=== PATIENT | female | born 1990 | race American Indian/Alaskan Native ===

== ENCOUNTER 2017-08-04 23:22 | Emergency (ER) | payer MEDICAID, OTHER, SELFPAY ==
[2017-08-05 00:08] VITALS: BP 118/66
[2017-08-05] MEDS ORDERED: Ketorolac 30 MG/ML SDV IM ONE (00:12)
--- NOTE | 2017-08-05 00:12 | EDM.PDOC ---
ED HPI GENERAL MEDICAL PROBLEM - General Chief Complaint: Back Pain or Injury Stated Complaint: BACK PAIN [id number] Time Seen by Provider: 08/05/17 00:07 Source of Information: Reports: Patient History Limitations: Reports: No Limitations - History of Present Illness INITIAL COMMENTS - FREE TEXT/NARRATIVE: was pulling laundry out of machine at work felt sudden sharp pain left upper back hurts to move and turn head. 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 ED EXAM, UPPER BACK/NECK PAIN - Physical Exam Exam: See Below Exam Limited By: No Limitations General Appearance: Alert, WD/WN, Mild Distress, Other (discomfort) Eye Exam: Bilateral Eye: PERRL (pupils ess ER @ 4mm) Ears Exam: Hearing Grossly Normal Throat/Mouth Exam: Normal Voice, No Airway Compromise Head Exam: Atraumatic Neck Exam: Non-Tender, Full Range of Motion Nexus Criteria: No: Posterior, Midline Cervical Tenderness, Evidence of Intoxication, Altered Level of Consciousness, Focal Neurological Deficit, Painful Distraction Injuries Cardiovascular/Respiratory: Regular Rate, Rhythm GI/Abdominal: Soft, Non-Tender Back Exam: Muscle Spasm, Paraspinal Tenderness, Other (left scapular) Neurologic: No Motor/Sensory Deficits, Alert, Normal Mood/Affect, Oriented x 3 Psychiatric: Tearful Skin Exam: Normal Color, Warm/Dry Lymphatic: No Adenopathy Course - Vital Signs Last Recorded V/S: Last Vital Signs Temp 36.9 C 08/05/17 00:04 Pulse 143 H 08/05/17 00:04 Resp 20 08/05/17 00:04 BP 118/66 08/05/17 00:04 Pulse Ox 100 08/05/17 00:04 - Orders/Labs/Meds Meds: Medications Discontinued Medications Generic Name Dose Route Start Last Admin Trade Name Winston PRN Reason Stop Dose Admin Cyclobenzaprine HCl 10 mg 08/05/17 00:36 08/05/17 00:43 Flexeril PO 08/05/17 00:37 10 mg ONETIME ONE Administration Ketorolac Tromethamine 30 mg 08/05/17 00:12 08/05/17 00:17 Toradol IM 08/05/17 00:13 30 mg ONETIME ONE Administration Departure - Departure Time of Disposition: 00:45 Disposition: Home, Self-Care 01 Condition: Good Clinical Impression: Interscapular pain - Discharge Information Instructions: Muscle Strain, [id number] Forms: ED Department Discharge Additional Instructions: 1) avoid lifting bending straining next 48 hours 2) try ice or heat to sore areas 3) follow up at clinic or recheck as needed rx given; flexeril 10mg bid prn spasms x 6
[2017-08-05] MEDS ORDERED: Cyclobenzaprine 10 MG Tab PO ONE (00:36)
== END 2017-08-05 00:46 | disposition home or self-care (01) ==
LOC: DL.ED 23:22
DX: M54.9 Dorsalgia, unspecified (principal)
CPT/HCPCS: 96372; 99283; A9270; J1885

== ENCOUNTER 2017-09-23 09:06 | Emergency (ER) | payer SELFPAY ==
--- NOTE | 2017-09-23 09:24 | EDM.PDOC ---
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 9wks gestation with c/o foul, fishy smelling vaginal discharge for about 7 days, with some pink tinge to the discharge over the last couple of days. Denies abd/pelvic pain, fever, chills, N/V, vaginal bleeding, or leak of fluids. Pt states Sx's are the same as when she had "BV" in the past. Onset: Gradual Duration: Day(s): (7) Location: Reports: Other (vaginal) Severity: Moderate Improves with: Reports: None Worsens with: Reports: None Associated Symptoms: Reports: No Other Symptoms Middle Abdomen Pain Score (Numeric/FACES): 3 - Related Data Allergies Allergy/AdvReac Type Severity Reaction Status Date / Time No Known Allergies Allergy Verified 09/23/17 09:31 Home Meds: Home Meds Acetaminophen [Tylenol] 650 mg PO Q6H PRN #30 tablet 03/03/16 [Rx] Ibuprofen [IJD: Ibuprofen] 600 mg PO Q6H PRN #40 tablet 03/03/16 [Rx] PNV95/Ferrous Fumarate/FA [Prenavite Tablet] 1 each PO 09/23/17 [History] Past Medical History - Past Health History Medical/Surgical History: Denies Medical/Surgical History Genitourinary History: Reports: Pyelonephritis, STD, UTI, Recurrent Other Genitourinary History: 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 ED EXAM - Physical Exam Exam: See Below Exam Limited By: No Limitations General Appearance: Alert, WD/WN, No Apparent Distress Throat/Mouth: Normal Inspection, Normal Voice Head: Atraumatic, Normocephalic Respiratory/Chest: No Respiratory Distress, Lungs Clear, Normal Breath Sounds, No Accessory Muscle Use, Chest Non-Tender Cardiovascular: Regular Rate, Rhythm, No Edema, No Murmur GI/Abdominal Exam: Normal Bowel Sounds, Soft, Non-Tender, No Organomegaly, No Distention, No Abnormal Bruit, No Mass, Pelvis Stable Rectal Exam: Deferred (Female) Exam: Other (Deferred) Movement: Not Appreciated Back Exam: Normal Inspection, Full Range of Motion. No: CVA Tenderness (L), CVA Tenderness (R) Extremities: Normal Inspection, Normal Range of Motion, Non-Tender, No Pedal Edema, Normal Capillary Refill Neurological: Alert, Oriented, Normal Cognition, Normal Gait, No Motor/Sensory Deficits Psychiatric: Normal Affect, Normal Mood Skin Exam: Warm, Dry, Intact, Normal Color, No Rash Course - Vital Signs Last Recorded V/S: Last Vital Signs Temp 36.7 C 09/23/17 09:23 Pulse 86 09/23/17 09:23 Resp 16 09/23/17 09:23 BP 117/74 09/23/17 09:23 Pulse Ox 98 09/23/17 09:23 - Orders/Labs/Meds Orders: Active Orders 24 hr Category Date Time Status CHLAMYDIA AND GONORRHEA BY TMA Routine Lab 09/23/17 09:45 Received DRUG SCREEN URINE BIORAD [URCHEM] Stat Lab 09/23/17 09:45 Ordered UA W/MICROSCOPIC [URIN] Stat Lab 09/23/17 09:45 Ordered Labs: Laboratory Tests 09/23/17 09/23/17 09/23/17 Range/Units 09:30 09:30 09:45 WBC 8.8 (5.0-10.0) 10^3/uL RBC 4.55 (4.2-5.4) 10^6/uL Hgb 10.7 L (12.0-16.0) g/dL Hct 33.0 L (37.0-47.0) % MCV 72.5 L D (80-100) fL MCH 23.5 L (27.0-34.0) pg MCHC 32.4 L (33.0-35.0) g/dL Plt Count 386 D (150-450) 10^3/uL Neut % (Auto) 61.6 (42.2-75.2) % Lymph % (Auto) 25.5 (20.5-50.1) % Converse % (Auto) 9.9 H (2-8) % Eos % (Auto) 2.4 (1.0-3.0) % Baso % (Auto) 0.6 (0.0-1.0) % HCG, Quant > 1358 H (0-25) mIU/ml Beta HCG, Quant 86120 mIU/ml Urine Color Yellow (YELLOW) Urine Appearance Cloudy (CLEAR) Urine pH 6.5 (5.0-9.0) Ur Specific Schaller 1.025 (1.005-1.030) Urine Protein Negative (NEGATIVE) Urine Glucose (UA) Negative (NEGATIVE) Urine Ketones Negative (NEGATIVE) Urine Occult Blood Trace-lysed H (NEGATIVE) Urine Nitrite Negative (NEGATIVE) Urine Bilirubin Negative (NEGATIVE) Urine Urobilinogen 0.2 (0.2-1.0) mg/dL Ur Leukocyte Esterase Negative (NEGATIVE) Urine RBC 5-10 H /HPF Urine WBC 0-5 (0-5/HPF) /HPF Ur Epithelial Cells Moderate H /HPF Amorphous Sediment Few (0/HPF) /HPF Urine Bacteria Rare (0-FEW/HPF) /HPF Urine Mucus Rare /LPF Urine Opiates Screen (NEGATIVE) Ur Oxycodone Screen (NEGATIVE) Urine Methadone Screen (NEGATIVE) Ur Barbiturates Screen (NEGATIVE) U Tricyclic Antidepress (NEGATIVE) Ur Phencyclidine Scrn (NEGATIVE) Ur Amphetamine Screen (NEGATIVE) U Methamphetamines Scrn (NEGATIVE) Urine MDMA Screen (NEGATIVE) U Benzodiazepines Scrn (NEGATIVE) Urine Cocaine Screen (NEGATIVE) U Marijuana (THC) Screen (NEGATIVE) 09/23/17 Range/Units 09:45 WBC (5.0-10.0) 10^3/uL RBC (4.2-5.4) 10^6/uL Hgb (12.0-16.0) g/dL Hct (37.0-47.0) % MCV (80-100) fL MCH (27.0-34.0) pg MCHC (33.0-35.0) g/dL Plt Count (150-450) 10^3/uL Neut % (Auto) (42.2-75.2) % Lymph % (Auto) (20.5-50.1) % Converse % (Auto) (2-8) % Eos % (Auto) (1.0-3.0) % Baso % (Auto) (0.0-1.0) % HCG, Quant (0-25) mIU/ml Beta HCG, Quant mIU/ml Urine Color (YELLOW) Urine Appearance (CLEAR) Urine pH (5.0-9.0) Ur Specific Schaller (1.005-1.030) Urine Protein (NEGATIVE) Urine Glucose (UA) (NEGATIVE) Urine Ketones (NEGATIVE) Urine Occult Blood (NEGATIVE) Urine Nitrite (NEGATIVE) Urine Bilirubin (NEGATIVE) Urine Urobilinogen (0.2-1.0) mg/dL Ur Leukocyte Esterase (NEGATIVE) Urine RBC /HPF Urine WBC (0-5/HPF) /HPF Ur Epithelial Cells /HPF Amorphous Sediment (0/HPF) /HPF Urine Bacteria (0-FEW/HPF) /HPF Urine Mucus /LPF Urine Opiates Screen Negative (NEGATIVE) Ur Oxycodone Screen Negative (NEGATIVE) Urine Methadone Screen Negative (NEGATIVE) Ur Barbiturates Screen Negative (NEGATIVE) U Tricyclic Antidepress Negative (NEGATIVE) Ur Phencyclidine Scrn Negative (NEGATIVE) Ur Amphetamine Screen Negative (NEGATIVE) U Methamphetamines Scrn Positive H (NEGATIVE) Urine MDMA Screen Negative (NEGATIVE) U Benzodiazepines Scrn Negative (NEGATIVE) Urine Cocaine Screen Negative (NEGATIVE) U Marijuana (THC) Screen Negative (NEGATIVE) - Re-Assessments/Exams Free Text/Narrative Re-Assessment/Exam: 09/23/17 Urine drug screen positive for methamphetamine. Pt denies drug use. Findings reported to RN for filing of form 960. Departure - Departure Time of Disposition: 10:10 Disposition: Home, Self-Care 01 Condition: Good Clinical Impression: Bacterial vaginosis, and infectious disease in first trimester, Positive urine drug screen - Discharge Information Instructions: Bacterial Vaginosis, [id number] Forms: ED Department Discharge Additional Instructions: Rx: Flagyl 500mg Follow up in clinic in 7 to 10 days for recheck. - My Orders Last 24 Hours: My Active Orders 09/23/17 09:45 CHLAMYDIA AND GONORRHEA BY TMA Routine DRUG SCREEN URINE BIORAD [URCHEM] Stat UA W/MICROSCOPIC [URIN] Stat - Assessment/Plan Last 24 Hours: My Active Orders 09/23/17 09:45 CHLAMYDIA AND GONORRHEA BY TMA Routine DRUG SCREEN URINE BIORAD [URCHEM] Stat UA W/MICROSCOPIC [URIN] Stat
[2017-09-23 09:25] VITALS: BP 117/74
== END 2017-09-23 10:15 | disposition home or self-care (01) ==
LOC: DL.ED 09:06
DX: O23.591 Infection of other part of genital tract in pregnancy, first trimester (principal); N76.0 Acute vaginitis; B96.89 Other specified bacterial agents as the cause of diseases classified elsewhere; Z3A.09 9 weeks gestation of pregnancy
CPT/HCPCS: 36415; 80305-QW; 81001; 84702; 85025; 87491; 87591; 99283; 99284

== ENCOUNTER 2017-12-09 00:49 | Emergency (ER) | payer SELFPAY ==
[2017-12-09 00:56] VITALS: BP 114/57
--- NOTE | 2017-12-09 01:13 | EDM.PDOC ---
ED HPI GENERAL MEDICAL PROBLEM - General Chief Complaint: ENT Problem Stated Complaint: EAR ACHE [id number] Time Seen by Provider: 12/09/17 01:10 Source of Information: Reports: Patient History Limitations: Reports: No Limitations - History of Present Illness INITIAL COMMENTS - FREE TEXT/NARRATIVE: c/o 2 days h/o right ear pain went to [facility]x with sinus problem but still not better. everything started with sore throat then ear pain then lump appear behind the ear. 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) Right Ear Pain Score (Numeric/FACES): 9 - Related Data Allergies Allergy/AdvReac Type Severity Reaction Status Date / Time No Known Allergies Allergy Verified 09/23/17 09:31 Home Meds: Home Meds Acetaminophen [Tylenol] 650 mg PO Q6H PRN #30 tablet 03/03/16 [Rx] Ibuprofen [IJD: Ibuprofen] 600 mg PO Q6H PRN #40 tablet 03/03/16 [Rx] PNV95/Ferrous Fumarate/FA [Prenavite Tablet] 1 each PO DAILY 09/23/17 [History] Past Medical History - Past Health History Medical/Surgical History: Denies Medical/Surgical History Cardiovascular History: Reports: None Genitourinary History: Reports: Pyelonephritis, STD, UTI, Recurrent Other Genitourinary History: 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, previous hx of bacterial vaginosis Other Endocrine/Metabolic History: Gestational Diabetes with 1st Hematologic History: Reports: Anemia - Past Surgical History Female Surgical History: Reports: Section Social & Family History - Family History Family Medical History: Noncontributory - Tobacco Use Smoking Status *Q: Current Every Day Smoker Years of Tobacco use: 10 Packs/Tins Daily: 0.5 Second Hand Smoke Exposure: Yes - Caffeine Use Caffeine Use: Reports: Coffee, Soda - Recreational Drug Use Recreational Drug Use: No - Living Situation & Occupation Living situation: Reports: with Family ED ROS ENT - Review of Systems Review Of Systems: ROS reveals no pertinent complaints other than HPI. ED EXAM, ENT - Physical Exam Exam: See Below Exam Limited By: No Limitations General Appearance: Alert, WD/WN, Mild Distress, Other (upset) Ears: Normal External Exam, Normal Canal, Hearing Grossly Normal, Normal TMs, TM Dullness Mouth/Throat: Pharyngeal Erythema. No: Tonsillar Erythema, Tonsillar Exudates, Tonsillar Swelling Head: Atraumatic Neck: Non-Tender, Full Range of Motion, Lymphadenopathy (R), Other (right post auricular lymphadnopathy) Respiratory/Chest: No Respiratory Distress Cardiovascular: Regular Rate, Rhythm GI/Abdominal: Soft, Non-Tender Neurological: Alert, Oriented, Normal Cognition, Normal Gait, No Motor/Sensory Deficits Psychiatric: Other (upset) Skin: Warm, Dry, Normal Color Lymphatic: No Adenopathy Course - Vital Signs Last Recorded V/S: Last Vital Signs Temp 36.2 C 12/09/17 00:54 Pulse 93 12/09/17 00:54 Resp 20 12/09/17 00:54 BP 114/57 L 12/09/17 00:54 Pulse Ox 100 12/09/17 00:54 - Orders/Labs/Meds Orders: Active Orders 24 hr Category Date Time Status CULTURE STREP A CONFIRMATION [RM] Stat Lab 12/09/17 01:05 Results STREP SCRN A RAPID W CULT CONF [RM] Stat Lab 12/09/17 01:05 Results Amoxicillin [Amoxil] Med 12/09/17 01:32 Once 250 mg PO ONETIME ONE - Re-Assessments/Exams Free Text/Narrative Re-Assessment/Exam: 12/09/17 01:33 results discussed with pt. Departure - Departure Time of Disposition: 01:33 Disposition: Home, Self-Care 01 Condition: Good Clinical Impression: Tonsillopharyngitis, Cervical lymphadenopathy - Discharge Information Instructions: Pharyngitis, [id number] Forms: ED Department Discharge Additional Instructions: 1) avoid solid foods and scratchy foods 2) follow up at clinic rx given; amox 250mg tid x 30 - My Orders Last 24 Hours: My Active Orders 12/09/17 01:05 CULTURE STREP A CONFIRMATION [RM] Stat STREP SCRN A RAPID W CULT CONF [RM] Stat 12/09/17 01:32 Amoxicillin [Amoxil] 250 mg PO ONETIME ONE - Assessment/Plan Last 24 Hours: My Active Orders 12/09/17 01:05 CULTURE STREP A CONFIRMATION [RM] Stat STREP SCRN A RAPID W CULT CONF [RM] Stat 12/09/17 01:32 Amoxicillin [Amoxil] 250 mg PO ONETIME ONE
[2017-12-09] MEDS ORDERED: Amoxicillin 250 MG Cap PO ONE (01:32)
== END 2017-12-09 01:41 | disposition home or self-care (01) ==
LOC: DL.ED 00:49
DX: J03.90 Acute tonsillitis, unspecified (principal); R59.0 Localized enlarged lymph nodes; F17.210 Nicotine dependence, cigarettes, uncomplicated; Z79.899 Other long term (current) drug therapy
CPT/HCPCS: 87081; 87430; 99283; A9270

== ENCOUNTER 2018-07-12 09:45 | Emergency (ER) | payer MEDICAID ==
[2018-07-12 10:11] VITALS: BP 122/80
[2018-07-12] MEDS ORDERED: Sodium Chloride 0.9% 1,000 ML IV ONE (10:11)
[2018-07-12] MEDS ORDERED: Ondansetron 4 MG/2 ML SDV IV ONE (10:11)
--- NOTE | 2018-07-12 10:13 | EDM.PDOC ---
ED HPI GENERAL MEDICAL PROBLEM - General Chief Complaint: Gastrointestinal Problem Stated Complaint: FOOD POISON [id number] Time Seen by Provider: 07/12/18 10:00 Source of Information: Reports: Patient History Limitations: Reports: No Limitations - History of Present Illness INITIAL COMMENTS - FREE TEXT/NARRATIVE: This 28 yo female patient reports to the ED with diffuse abdominal pain, nausea/ vomiting and diarrhea. The patient reports her symptoms started this morning at 0600. The patient reports she did eat [employer] stir-hein and [employer] chicken tenders last night for dinner. The patient reports she has not taken anything for her current symptoms. The patient denies any drug or alcohol use. Onset: Today Onset Date: 07/12/18 Onset Time: 06:00 Duration: Constant Location: Reports: Abdomen Quality: Reports: Ache, Dull Severity: Moderate Improves with: Reports: None Worsens with: Reports: None Context: Reports: Other Associated Symptoms: Reports: Nausea/Vomiting, Other (diarrhea) Bilateral Upper Abdominal Pain Score (Numeric/FACES): 9 - Related Data Allergies Allergy/AdvReac Type Severity Reaction Status Date / Time No Known Allergies Allergy Verified 07/12/18 09:55 Home Meds: Home Meds Acetaminophen [Tylenol] 650 mg PO Q6H PRN #30 tablet 16 [Rx] Ibuprofen [IJD: Ibuprofen] 600 mg PO Q6H PRN #40 tablet 16 [Rx] Past Medical History - Past Health History Medical/Surgical History: Denies Medical/Surgical History Cardiovascular History: Reports: None Genitourinary History: Reports: Pyelonephritis, STD, UTI, Recurrent Other Genitourinary History: Chlamydia with previous 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 ED EXAM, GI/ABD - Physical Exam Exam: See Below Exam Limited By: No Limitations General Appearance: Alert, WD/WN, Moderate Distress Eyes: Bilateral: Normal Appearance, EOMI Ears: Normal External Exam, Normal Canal, Hearing Grossly Normal, Normal TMs Nose: Normal Inspection, Normal Mucosa, No Blood Throat/Mouth: Normal Inspection, Normal Lips, Normal Teeth, Normal Gums, Normal Oropharynx, Normal Voice, No Airway Compromise Head: Atraumatic, Normocephalic Neck: Normal Inspection, Supple, Non-Tender, Full Range of Motion Respiratory/Chest: No Respiratory Distress, Lungs Clear, Normal Breath Sounds, No Accessory Muscle Use, Chest Non-Tender Cardiovascular: Normal Peripheral Pulses, Regular Rate, Rhythm, No Edema, No Gallop, No JVD, No Murmur, No Rub GI/Abdominal Exam: Normal Bowel Sounds, Soft, No Organomegaly, No Distention, No Abnormal Bruit, No Mass, Pelvis Stable, Tender (diffuse upper abdominal tenderness to palpation) (Female) Exam: Deferred Rectal (Female) Exam: Deferred Back Exam: Normal Inspection, Full Range of Motion, NT Extremities: Normal Inspection, Normal Range of Motion, Non-Tender, Normal Capillary Refill, No Pedal Edema Neurological: Alert, Oriented, CN II-XII Intact, Normal Cognition, Normal Gait, Normal Reflexes, No Motor/Sensory Deficits Psychiatric: Normal Affect, Normal Mood Skin Exam: Warm, Dry, Intact, Normal Color, No Rash Lymphatic: No Adenopathy Course - Vital Signs Last Recorded V/S: Last Vital Signs Temp 36.6 C 07/12/18 09:56 Pulse 107 H 07/12/18 09:56 Resp 16 07/12/18 09:56 BP 122/80 07/12/18 09:56 Pulse Ox 97 07/12/18 09:56 - Orders/Labs/Meds Orders: Active Orders 24 hr Category Date Time Status CULTURE BLOOD [BC] Stat Lab 07/12/18 10:20 Received Labs: Laboratory Tests 07/12/18 07/12/18 07/12/18 Range/Units 10:08 10:08 10:20 WBC (5.0-10.0) 10^3/uL RBC (4.2-5.4) 10^6/uL Hgb (12.0-16.0) g/dL Hct (37.0-47.0) % MCV (80-100) fL MCH (27.0-34.0) pg MCHC (33.0-35.0) g/dL Plt Count (150-450) 10^3/uL Neut % (Auto) (42.2-75.2) % Lymph % (Auto) (20.5-50.1) % Real % (Auto) (2-8) % Eos % (Auto) (1.0-3.0) % Baso % (Auto) (0.0-1.0) % Sodium (135-145) mmol/L Potassium (3.6-5.0) mmol/L Chloride (101-111) mmol/L Carbon Dioxide (21.0-31.0) mmol/L Anion Gap BUN (7-18) mg/dL Creatinine (0.6-1.3) mg/dL Est Cr Clr Drug Dosing mL/min Estimated GFR (MDRD) BUN/Creatinine Ratio Glucose (74-105) mg/dL Lactic Acid (0.5-2.2) mmol/L Calcium (8.4-10.2) mg/dl Total Bilirubin (0.2-1.0) mg/dL AST (10-42) IU/L ALT (10-60) IU/L Alkaline Phosphatase (42-121) IU/L Total Protein (6.7-8.2) g/dl Albumin (3.2-5.5) g/dl Globulin Albumin/Globulin Ratio Amylase 55 (28-100) U/L Lipase 35 (22-51) U/L HCG, Qual Urine Color Yellow (YELLOW) Urine Appearance Clear (CLEAR) Urine pH 5.5 (5.0-9.0) Ur Specific Levan >= 1.030 (1.005-1.030) Urine Protein 30 H (NEGATIVE) Urine Glucose (UA) Negative (NEGATIVE) Urine Ketones Negative (NEGATIVE) Urine Occult Blood Negative (NEGATIVE) Urine Nitrite Negative (NEGATIVE) Urine Bilirubin Negative (NEGATIVE) Urine Urobilinogen 0.2 (0.2-1.0) mg/dL Ur Leukocyte Esterase Negative (NEGATIVE) Urine RBC Not seen /HPF Urine WBC Not seen (0-5/HPF) /HPF Ur Epithelial Cells Many H /HPF Urine Bacteria Few (0-FEW/HPF) /HPF Urine Mucus Many H /LPF Urine Opiates Screen Negative (NEGATIVE) Ur Oxycodone Screen Negative (NEGATIVE) Urine Methadone Screen Negative (NEGATIVE) Ur Barbiturates Screen Negative (NEGATIVE) U Tricyclic Antidepress Negative (NEGATIVE) Ur Phencyclidine Scrn Negative (NEGATIVE) Ur Amphetamine Screen Negative (NEGATIVE) U Methamphetamines Scrn Positive H (NEGATIVE) Urine MDMA Screen Negative (NEGATIVE) U Benzodiazepines Scrn Negative (NEGATIVE) Urine Cocaine Screen Negative (NEGATIVE) U Marijuana (THC) Screen Negative (NEGATIVE) 07/12/18 07/12/18 07/12/18 Range/Units 10:20 10:20 10:20 WBC 15.7 H (5.0-10.0) 10^3/uL RBC 5.47 H (4.2-5.4) 10^6/uL Hgb 15.2 D (12.0-16.0) g/dL Hct 45.7 (37.0-47.0) % MCV 83.5 D (80-100) fL MCH 27.8 (27.0-34.0) pg MCHC 33.3 (33.0-35.0) g/dL Plt Count 335 (150-450) 10^3/uL Neut % (Auto) 90.0 H (42.2-75.2) % Lymph % (Auto) 5.6 L (20.5-50.1) % Real % (Auto) 3.7 (2-8) % Eos % (Auto) 0.6 L (1.0-3.0) % Baso % (Auto) 0.1 (0.0-1.0) % Sodium 140 (135-145) mmol/L Potassium 3.9 (3.6-5.0) mmol/L Chloride 107 (101-111) mmol/L Carbon Dioxide 21.0 (21.0-31.0) mmol/L Anion Gap 15.9 BUN 12 (7-18) mg/dL Creatinine 0.6 (0.6-1.3) mg/dL Est Cr Clr Drug Dosing 107.22 mL/min Estimated GFR (MDRD) > 60 BUN/Creatinine Ratio 20.00 Glucose 118 H (74-105) mg/dL Lactic Acid 1.1 (0.5-2.2) mmol/L Calcium 8.8 (8.4-10.2) mg/dl Total Bilirubin 0.5 (0.2-1.0) mg/dL AST 27 (10-42) IU/L ALT 37 (10-60) IU/L Alkaline Phosphatase 78 (42-121) IU/L Total Protein 8.0 (6.7-8.2) g/dl Albumin 4.5 (3.2-5.5) g/dl Globulin 3.5 Albumin/Globulin Ratio 1.29 Amylase (28-100) U/L Lipase (22-51) U/L HCG, Qual Urine Color (YELLOW) Urine Appearance (CLEAR) Urine pH (5.0-9.0) Ur Specific Levan (1.005-1.030) Urine Protein (NEGATIVE) Urine Glucose (UA) (NEGATIVE) Urine Ketones (NEGATIVE) Urine Occult Blood (NEGATIVE) Urine Nitrite (NEGATIVE) Urine Bilirubin (NEGATIVE) Urine Urobilinogen (0.2-1.0) mg/dL Ur Leukocyte Esterase (NEGATIVE) Urine RBC /HPF Urine WBC (0-5/HPF) /HPF Ur Epithelial Cells /HPF Urine Bacteria (0-FEW/HPF) /HPF Urine Mucus /LPF Urine Opiates Screen (NEGATIVE) Ur Oxycodone Screen (NEGATIVE) Urine Methadone Screen (NEGATIVE) Ur Barbiturates Screen (NEGATIVE) U Tricyclic Antidepress (NEGATIVE) Ur Phencyclidine Scrn (NEGATIVE) Ur Amphetamine Screen (NEGATIVE) U Methamphetamines Scrn (NEGATIVE) Urine MDMA Screen (NEGATIVE) U Benzodiazepines Scrn (NEGATIVE) Urine Cocaine Screen (NEGATIVE) U Marijuana (THC) Screen (NEGATIVE) 07/12/18 Range/Units 10:20 WBC (5.0-10.0) 10^3/uL RBC (4.2-5.4) 10^6/uL Hgb (12.0-16.0) g/dL Hct (37.0-47.0) % MCV (80-100) fL MCH (27.0-34.0) pg MCHC (33.0-35.0) g/dL Plt Count (150-450) 10^3/uL Neut % (Auto) (42.2-75.2) % Lymph % (Auto) (20.5-50.1) % Real % (Auto) (2-8) % Eos % (Auto) (1.0-3.0) % Baso % (Auto) (0.0-1.0) % Sodium (135-145) mmol/L Potassium (3.6-5.0) mmol/L Chloride (101-111) mmol/L Carbon Dioxide (21.0-31.0) mmol/L Anion Gap BUN (7-18) mg/dL Creatinine (0.6-1.3) mg/dL Est Cr Clr Drug Dosing mL/min Estimated GFR (MDRD) BUN/Creatinine Ratio Glucose (74-105) mg/dL Lactic Acid (0.5-2.2) mmol/L Calcium (8.4-10.2) mg/dl Total Bilirubin (0.2-1.0) mg/dL AST (10-42) IU/L ALT (10-60) IU/L Alkaline Phosphatase (42-121) IU/L Total Protein (6.7-8.2) g/dl Albumin (3.2-5.5) g/dl Globulin Albumin/Globulin Ratio Amylase (28-100) U/L Lipase (22-51) U/L HCG, Qual Negative Urine Color (YELLOW) Urine Appearance (CLEAR) Urine pH (5.0-9.0) Ur Specific Levan (1.005-1.030) Urine Protein (NEGATIVE) Urine Glucose (UA) (NEGATIVE) Urine Ketones (NEGATIVE) Urine Occult Blood (NEGATIVE) Urine Nitrite (NEGATIVE) Urine Bilirubin (NEGATIVE) Urine Urobilinogen (0.2-1.0) mg/dL Ur Leukocyte Esterase (NEGATIVE) Urine RBC /HPF Urine WBC (0-5/HPF) /HPF Ur Epithelial Cells /HPF Urine Bacteria (0-FEW/HPF) /HPF Urine Mucus /LPF Urine Opiates Screen (NEGATIVE) Ur Oxycodone Screen (NEGATIVE) Urine Methadone Screen (NEGATIVE) Ur Barbiturates Screen (NEGATIVE) U Tricyclic Antidepress (NEGATIVE) Ur Phencyclidine Scrn (NEGATIVE) Ur Amphetamine Screen (NEGATIVE) U Methamphetamines Scrn (NEGATIVE) Urine MDMA Screen (NEGATIVE) U Benzodiazepines Scrn (NEGATIVE) Urine Cocaine Screen (NEGATIVE) U Marijuana (THC) Screen (NEGATIVE) Meds: Medications Discontinued Medications Generic Name Dose Route Start Last Admin Trade Name Freq PRN Reason Stop Dose Admin Sodium Chloride 1,000 mls @ 999 mls/hr 07/12/18 10:11 07/12/18 10:30 Normal Saline IV 07/12/18 11:11 999 mls/hr .BOLUS ONE Administration Iopamidol 75 ml 07/12/18 10:55 07/12/18 11:34 Isovue-300 (61%) IVPUSH 07/12/18 10:56 75 ml ONETIME ONE Administration Ondansetron HCl 4 mg 07/12/18 10:11 07/12/18 10:30 Zofran IV 07/12/18 10:12 4 mg ONETIME ONE Administration Departure - Departure Time of Disposition: 12:46 Disposition: Home, Self-Care 01 Condition: Fair Clinical Impression: Gastroenteritis, Endometritis Ovarian cyst Qualifiers: Laterality: unspecified laterality Qualified Code(s): N83.209 - Unspecified ovarian cyst, unspecified side - Discharge Information *PRESCRIPTION DRUG MONITORING PROGRAM REVIEWED*: Not Applicable *COPY OF PRESCRIPTION DRUG MONITORING REPORT IN PATIENT NITIN: Not Applicable Instructions: Viral Gastroenteritis, Adult, [id number], Ovarian Cyst, Easy-to -Read, Endometritis Forms: ED Department Discharge Care Plan Goals: The patient was advised of the examination, lab and CT results during the visit. The patient was given IV fluids and IV Zofran while in the ED. The patient was discharged with a script for Zofran (4 mg) #20 1 by mouth every 6 hours as needed for nausea. The patient should stick to a BRAT diet with small frequent sips of fluid. If the patient has any additional symptoms or concerns, the patient should either return to the emergency department or visit her primary care facility. - My Orders Last 24 Hours: My Active Orders 07/12/18 10:20 CULTURE BLOOD [BC] Stat - Assessment/Plan Last 24 Hours: My Active Orders 07/12/18 10:20 CULTURE BLOOD [BC] Stat
[2018-07-12 10:43] VITALS: PULSE 107
[2018-07-12 10:49] LABS: ANION GAP 15.9; CHLORIDE,CL 107 mmol/L (101-111); SODIUM,NA 140 mmol/L (135-145)
[2018-07-12] MEDS ORDERED: Iopamidol 612 MG/ML 75 ML Bottle IVPUSH ONE (10:55)
--- NOTE | 2018-07-12 12:37 | CT ---
Clinical history: 28-year-old female smoker with lower abdominal pain and abnormally elevated WBC (15,700) who has had 4 previous sections (the last in April 2018). Patient reportedly had her tubes tied and "negative" test. History illicit drug use (Meth). Scan technique: Volume acquisition of data from the abdomen and pelvis obtained without oral contrast but during intravenous infusion 75 cc nonionic Isovue contrast (3 cc/s via injector) while patient was lying supine on the Siemens multi slice scanner [place], [place]. All data archived in the PACS system for storage, reformatting axial/sagittal/coronal planes and study. Interpretation: 1. *Midline uterus with a large central collection of fluid that has a uniformly thick surrounding "rind" ( blood associated with recent ? Endometritis?). Clinical correlation please. Several nabothian type cysts in the cervix. 2. Bilateral ovarian cysts (18 mm on the left and larger 30 mm cyst, on the right). No free fluid in the cul-de-sac. 3. Abnormal appearance mucosa of the ascending right colon and terminal ileum suggesting possible ileal-colitis. ? No abdominal mass, pelvic or mesenteric lymphadenopathy, signs of mechanical bowel obstruction, ascites or free air. 4. Gallbladder, liver, stomach, spleen, pancreas and adrenal glands unremarkable. Normal appendix (RLQ) "draped" over ipsilateral right ovary. 5. Solitary tiny 8-9 mm cyst lower pole cortex left kidney. No other cystic or solid renal cortical mass lesion, nephrolithiasis or signs of obstructive uropathy. Symmetrically distended normal appearing urinary bladder. 6. Normal caliber aortoiliac vessels. Lumbar spine unremarkable. Lung bases clear. CONCLUSION: Bilateral ovarian cysts and fluid-filled endometrial canal, uterus. Endometritis? Possible colitis (see above).
== END 2018-07-12 12:54 | disposition home or self-care (01) ==
LOC: DL.ED 09:45
DX: K52.9 Noninfective gastroenteritis and colitis, unspecified (principal); N83.209 Unspecified ovarian cyst, unspecified side
CPT/HCPCS: 36415; 74177; 80053; 80305; 81001; 82150; 83605; 83690; 84703; 85025; 87040; 87804; 96361; 96374; 99284; J2405; J7030; Q9967

== ENCOUNTER 2018-08-23 14:59 | Emergency (ER) | payer MEDICAID, OTHER ==
[2018-08-23 15:14] VITALS: BP 117/68
--- NOTE | 2018-08-23 15:22 | EDM.PDOC ---
ED HPI GENERAL MEDICAL PROBLEM - General Chief Complaint: Skin Complaint Stated Complaint: TOE IS INFECTED Time Seen by Provider: 08/23/18 15:12 Source of Information: Reports: Patient History Limitations: Reports: No Limitations - History of Present Illness INITIAL COMMENTS - FREE TEXT/NARRATIVE: patient comes emergency department today with concerns of an infection on her left foot. Couple of days ago on her second toe on her left footshe scraped it on something. She covered it up with a Band-Aid and when she took the Band-Aid off a couple of days later she notices quite a bit of erythema purulent discharge and having more pain. She also notes a similar type of lesion on the anterior base of her left great toe. LAst tetanus is UTD had a child in april. 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 ED EXAM, SKIN/RASH Exam: See Below Exam Limited By: No Limitations General Appearance: Alert, WD/WN, No Apparent Distress Location, Skin: Upper Extremity, Left (on the left lower extremity on the very distal phalanges of the second toe of the left foot on the medial aspect there is a scabbed over small pea-sized region that encompasses quite a bit of erythema with some purulent discharge. At the base of the left great toe the anterior aspect there is a scab with a small amount of erythema that is nontender without any purulent discharge. Rest of the left foot is atraumatic and unremarkable) Course - Vital Signs Last Recorded V/S: Last Vital Signs Temp 35.9 C 08/23/18 15:02 Pulse 97 08/23/18 15:02 Resp 16 08/23/18 15:02 BP 117/68 08/23/18 15:02 Pulse Ox 97 08/23/18 15:02 - Orders/Labs/Meds Orders: Active Orders 24 hr Category Date Time Status CULTURE WOUND [RM] Stat Lab 08/23/18 15:20 Received - Re-Assessments/Exams Free Text/Narrative Re-Assessment/Exam: 08/23/18 15:56 wound culture obtained of the drainage of the left second toe. Departure - Departure Time of Disposition: 15:20 Disposition: Home, Self-Care 01 Clinical Impression: Toe infection - Discharge Information Instructions: Fingertip Infection Forms: ED Department Discharge Additional Instructions: Tylenol and or Ibuprofen as needed for pain. Soak the foot in warm as possible water with Jayashree dish soap and Epsom salt 4 times a day until healed. Bactrim DS, 1 tablet twice daily for the next 7 days. RX given to the patient. Return to the ED if new or worsening symptoms. Follow up with PCP in the next week if not improving sooner if worse. - My Orders Last 24 Hours: My Active Orders 08/23/18 15:20 CULTURE WOUND [RM] Stat - Assessment/Plan Last 24 Hours: My Active Orders 08/23/18 15:20 CULTURE WOUND [RM] Stat Assessment:: Toe infection to the left great base of the toe and second toe. Plan: Tylenol and or Ibuprofen as needed for pain. Soak the foot in warm as possible water with Jayashree dish soap and Epsom salt 4 times a day until healed. Bactrim DS, 1 tablet twice daily for the next 7 days. RX given to the patient. Return to the ED if new or worsening symptoms. Follow up with PCP in the next week if not improving sooner if worse.
== END 2018-08-23 15:43 | disposition home or self-care (01) ==
LOC: DL.ED 14:59
DX: L08.9 Local infection of the skin and subcutaneous tissue, unspecified (principal)
CPT/HCPCS: 87070; 87077; 99283

== ENCOUNTER 2019-03-09 21:24 | Emergency (ER) | payer MEDICAID, OTHER ==
[2019-03-09] MEDS ORDERED: Mupirocin Oint 22 GM Tube TOP ONE (21:25)
[2019-03-09 21:42] VITALS: BP 149/90
--- NOTE | 2019-03-09 22:51 | EDM.PDOC ---
ED HPI GENERAL MEDICAL PROBLEM - General Chief Complaint: Lower Extremity Injury/Pain Stated Complaint: LEFT PINKY TOE INFECTED Time Seen by Provider: 03/09/19 22:48 Source of Information: Reports: Patient History Limitations: Reports: No Limitations - History of Present Illness INITIAL COMMENTS - FREE TEXT/NARRATIVE: worsening left 5th toe infection - Related Data Allergies Allergy/AdvReac Type Severity Reaction Status Date / Time No Known Allergies Allergy Verified 03/09/19 21:56 Home Meds: Home Meds Acetaminophen [Tylenol] 650 mg PO Q6H PRN #30 tablet 03/03/16 [Rx] Ibuprofen [IJD: Ibuprofen] 600 mg PO Q6H PRN #40 tablet 03/03/16 [Rx] Past Medical History - Past Health History Medical/Surgical History: Denies Medical/Surgical History HEENT History: Reports: None Cardiovascular History: Reports: None Respiratory History: Reports: None Gastrointestinal History: Reports: None Genitourinary History: Reports: Pyelonephritis, STD, UTI, Recurrent Other Genitourinary History: Chlamydia with previous 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: 4 previous 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, previous hx of bacterial vaginosis Musculoskeletal History: Reports: None Neurological History: Reports: None Psychiatric History: Reports: None Endocrine/Metabolic History: Reports: Diabetes, Gestational Other Endocrine/Metabolic History: Gestational Diabetes with 1st Hematologic History: Reports: Anemia Immunologic History: Reports: None Oncologic (Cancer) History: Reports: None Dermatologic History: Reports: None - Past Surgical History Female Surgical History: Reports: Section Social & Family History - Family History Family Medical History: Noncontributory - Tobacco Use Smoking Status *Q: Current Every Day Smoker Years of Tobacco use: 11 Packs/Tins Daily: 0.1 - Caffeine Use Caffeine Use: Reports: Coffee, Energy Drinks, Soda, Tea - Recreational Drug Use Recreational Drug Use: No - Living Situation & Occupation Living situation: Reports: with Family Review of Systems - Review of Systems Review Of Systems: Comprehensive ROS is negative, except as noted in HPI. ED EXAM, GENERAL - Physical Exam Exam: See Below Exam Limited By: No Limitations General Appearance: Alert, WD/WN, Mild Distress, Other (discomfort) Ears: Hearing Grossly Normal Throat/Mouth: Normal Voice, No Airway Compromise Head: Atraumatic Neck: Non-Tender, Full Range of Motion Respiratory/Chest: No Respiratory Distress Cardiovascular: Regular Rate, Rhythm GI/Abdominal: Soft, Non-Tender Extremities: Other (left 5th toe swollen infected, no lymphangitis, NV wnl, gait limited to pain) Neurological: Alert, Oriented, Normal Cognition, No Motor/Sensory Deficits Psychiatric: Normal Affect, Normal Mood Skin Exam: Warm, Dry, Normal Color Lymphatic: No Adenopathy Course - Vital Signs Last Recorded V/S: Last Vital Signs Temp 36.1 C 03/09/19 21:35 Pulse Resp 14 03/09/19 21:35 BP 149/90 H 03/09/19 21:35 Pulse Ox 97 03/09/19 21:35 - Orders/Labs/Meds Orders: Active Orders 24 hr Category Date Time Status CULTURE WOUND [RM] Stat Lab 03/09/19 22:00 Received Meds: Medications Discontinued Medications Generic Name Dose Route Start Last Admin Trade Name Ludinq PRN Reason Stop Dose Admin Clindamycin HCl 300 mg 03/09/19 22:45 Cleocin PO 03/09/19 22:46 ONETIME ONE Departure - Departure Time of Disposition: 22:49 Disposition: Home, Self-Care 01 Condition: Good Clinical Impression: Toe infection - Discharge Information Additional Instructions: 1) keep toe clean dry covered 2) elevate leg as much as possible next 3 to 4 days 3) follow up at clinic rx given; clindamycin 300mg qid x 40 rx togo; bactroban cream tid Sepsis Event Note - Evaluation Sepsis Screening Result: No Definite Risk - Focused Exam Vital Signs: Vital Signs Temp Resp BP Pulse Ox 03/09/19 21:35 36.1 C 14 149/90 H 97 Date Exam was Performed: 03/09/19 Time Exam was Performed: 22:48 - My Orders Last 24 Hours: My Active Orders 03/09/19 22:00 CULTURE WOUND [RM] Stat - Assessment/Plan Last 24 Hours: My Active Orders 03/09/19 22:00 CULTURE WOUND [RM] Stat
[2019-03-09] MEDS: Clindamycin HCl 150 MG Cap PO ONE (22:52)
[2019-03-09] MEDS: Mupirocin Oint 22 GM Tube ONE (22:53)
== END 2019-03-09 22:57 | disposition home or self-care (01) ==
LOC: DL.ED 21:24
DX: L08.9 Local infection of the skin and subcutaneous tissue, unspecified (principal); F17.210 Nicotine dependence, cigarettes, uncomplicated
CPT/HCPCS: 87070; 87077; 87186; 99283; A9270